=== PATIENT | female | born 1955 | race African-American/Black ===

== ENCOUNTER 2021-07-30 16:46 | Inpatient (IN) | payer BC ==
[~2021-07-30] VITALS: Ht 160 cm; Wt 75.5 kg
[2021-07-30 18:03] LABS: BASOPHILS % 0.7 % (0.0-2.0); EOSINOPHILS % 1.5 % (0.0-5.0); HEMATOCRIT. 37.9 % (36.0-48.0); HEMOGLOBIN. 12.5 g/dL (12.0-16.0); LYMPHOCYTES % 16.1 % (20.0-50.0); MEAN CORPUSCULAR HEMOGLOBIN 29.8 pg (28.0-32.0); MEAN CORPUSCULAR VOLUME 90.3 fL (81.0-99.0); MONOCYTES % 10.7 % (2.0-8.0); PLATELET 220 x1000/uL (130-400); RED CELL DISTRIBUTION WIDTH 17.8 % (11.6-14.6)
[2021-07-30 18:08] LABS: CHLORIDE 104 mEq/L (98-107)
[2021-07-30 18:14] LABS: ETHANOL BLOOD < 10 mg/dL
[2021-07-30] MEDS ORDERED: FUROSEMIDE 40MG/4ML VIAL IVP NR (19:15)
[2021-07-30] MEDS ORDERED: DOCUSATE SODIUM 100MG CAPSULE PO PRN (22:30)
[2021-07-30] MEDS ORDERED: CLONIDINE 0.1MG TABLET PO PRN (22:30)
[2021-07-30] MEDS ORDERED: NALOXONE HCL 0.4MG/ML VIAL IV PRN (22:45)
[2021-07-31] VITALS (7 sets, daily range): BP systolic 97–161; BP diastolic 67–113
[2021-07-31 00:38] LABS: CLARITY URINE CLEAR (CLEAR); COLOR URINE YELLOW (YELLOW); KETONES URINE NEGATIVE (NEGATIVE); LEUKOCYTE ESTERASE URINE NEGATIVE (NEGATIVE); NITRITE URINE NEGATIVE (NEGATIVE); OCCULT BLOOD URINE NEGATIVE (NEGATIVE); PROTEIN URINE 3+ (NEGATIVE); SPECIFIC GRAVITY URINE 1.016 (1.005-1.030); UROBILINOGEN URINE 0.2 E.U./dL (0.2-1.0)
[2021-07-31 00:55] LABS: *AMPHETAMINES SCREEN URINE NEGATIVE (NEGATIVE); *BARBITURATES SCREEN URINE NEGATIVE (NEGATIVE); *BENZODIAZEPINES SCREEN URINE NEGATIVE (NEGATIVE); *COCAINE SCREEN URINE NEGATIVE (NEGATIVE); METHADONE URINE SCREEN NEGATIVE (NEGATIVE); OPIATES URINE SCREEN NEGATIVE (NEGATIVE); PHENCYCLIDINE URINE SCREEN NEGATIVE (NEGATIVE)
[2021-07-31 00:56] LABS: CANNABINOID URINE SCREEN NEGATIVE (NEGATIVE)
[2021-07-31] MEDS: ACETAMINOPHEN 325MG TABLET PO PRN ×2 (01:21→12:49)
[2021-07-31] MEDS ORDERED: DEXTROSE 50% WATER 50ML SYRINGE IV PRN (01:45)
[2021-07-31] MEDS ORDERED: KEPP500 PO (01:57)
[2021-07-31] MEDS ORDERED: AMLO5TAB88 PO (01:57)
[2021-07-31] MEDS ORDERED: ALLO100T57 PO (01:57)
[2021-07-31] MEDS ORDERED: FURO-151 PO (01:57)
[2021-07-31] MEDS ORDERED: POTA10CA42 PO (01:57)
[2021-07-31] MEDS ORDERED: LABE100T5 PO (01:57)
[2021-07-31] MEDS ORDERED: ATOR-2 PO (01:57)
[2021-07-31] MEDS: BLOOD SUGAR DIAGNOSTIC STRIP TEST SCH ×4 (06:35→21:05)
[2021-07-31] MEDS: INSULIN LISPRO 100 UNITS/ML SUBCUT SCH ×4 (06:36→21:00)
[2021-07-31 06:37] LABS: HEMATOCRIT. 34.4 % (36.0-48.0); HEMOGLOBIN. 11.5 g/dL (12.0-16.0); MEAN CORPUSCULAR HEMOGLOBIN 29.7 pg (28.0-32.0); MEAN CORPUSCULAR VOLUME 89.1 fL (81.0-99.0); MEAN PLATELET VOLUME 8.1 fl (7.4-10.4); PLATELET 205 x1000/uL (130-400); RED BLOOD CELL COUNT 3.86 mill/uL (4.2-5.4); RED CELL DISTRIBUTION WIDTH 17.6 % (11.6-14.6)
[2021-07-31 07:08] LABS: CREATINE KINASE MB FRACTION 3.7 ng/mL (0.5-3.6)
[2021-07-31] MEDS: FUROSEMIDE 40MG/4ML VIAL IV SCH ×2 (09:10→17:23)
[2021-07-31] MEDS ORDERED: POTASSIUM CHLORIDE 20MEQ TABLET SR PO NR (11:30)
[2021-07-31] MEDS: DILTIAZEM HCL 30MG TABLET PO SCH ×2 (12:48→21:04)
[2021-07-31 14:42] LABS: PLATELET ESTIMATE NORMAL
[2021-07-31] MEDS ORDERED: BUME2TAB7 PO (20:57)
[2021-07-31] MEDS: ENOXAPARIN 30MG/0.3ML SYR SUBCUT SCH (21:08)
[2021-07-31] MEDS: HYDROCODONE/ACETAMINOPHEN 5/325MG TABLET PO PRN (21:09)
[2021-07-31 23:03] LABS: CREATINE KINASE 117 IU/L (26-192)
[2021-07-31 23:04] LABS: CREATINE KINASE MB FRACTION 2.7 ng/mL (0.5-3.6)
[2021-08-01] VITALS: BP 139/85
[2021-08-01 04:00] VITALS: BP 141/89
[2021-08-01] MEDS: IPRATROPIUM/ALBUTEROL 0.5-3(2.5)MG/3ML NEB HHN PRN ×2 (04:59→22:34)
[2021-08-01] MEDS: DILTIAZEM HCL 30MG TABLET PO SCH ×3 (06:29→21:11)
[2021-08-01] MEDS: BLOOD SUGAR DIAGNOSTIC STRIP TEST SCH ×4 (06:29→21:00)
[2021-08-01] MEDS: FUROSEMIDE 40MG/4ML VIAL IV SCH ×2 (06:29→16:48)
[2021-08-01] MEDS: INSULIN LISPRO 100 UNITS/ML SUBCUT SCH ×4 (06:29→21:00)
[2021-08-01 06:44] LABS: HEMATOCRIT. 36.2 % (36.0-48.0); HEMOGLOBIN. 11.8 g/dL (12.0-16.0); MEAN CORPUSCULAR HEMOGLOBIN 29.2 pg (28.0-32.0); MEAN CORPUSCULAR VOLUME 89.8 fL (81.0-99.0); PLATELET 215 x1000/uL (130-400); RED BLOOD CELL COUNT 4.03 mill/uL (4.2-5.4); RED CELL DISTRIBUTION WIDTH 18.2 % (11.6-14.6)
[2021-08-01 08:00] VITALS: BP 134/84
[2021-08-01] MEDS: METOLAZONE 5MG TABLET PO SCH (09:00)
[2021-08-01 12:00] VITALS: BP 122/90
[2021-08-01] MEDS: ACETAMINOPHEN 325MG TABLET PO PRN (15:15)
[2021-08-01 16:00] VITALS: BP 139/94
[2021-08-01 20:00] VITALS: BP 134/84
[2021-08-01] MEDS: ENOXAPARIN 30MG/0.3ML SYR SUBCUT SCH ×2 (21:00→21:10)
[2021-08-01] MEDS: LEVETIRACETAM 500MG TABLET PO SCH (21:11)
[2021-08-02] VITALS: BP 146/88
[2021-08-02 04:00] VITALS: BP 159/94
[2021-08-02] MEDS: HYDROCODONE/ACETAMINOPHEN 5/325MG TABLET PO PRN (04:47)
[2021-08-02] MEDS: DILTIAZEM HCL 30MG TABLET PO SCH ×3 (06:00→21:40)
[2021-08-02] MEDS: INSULIN LISPRO 100 UNITS/ML SUBCUT SCH ×4 (06:35→21:00)
[2021-08-02] MEDS: BLOOD SUGAR DIAGNOSTIC STRIP TEST SCH ×4 (06:35→20:45)
[2021-08-02] MEDS: FUROSEMIDE 40MG/4ML VIAL IV SCH ×2 (06:37→17:07)
[2021-08-02 07:38] LABS: PLATELET ESTIMATE NORMAL
[2021-08-02 08:00] VITALS: BP 137/78
[2021-08-02] MEDS: LEVETIRACETAM 500MG TABLET PO SCH ×2 (08:49→21:39)
[2021-08-02] MEDS: METOLAZONE 5MG TABLET PO SCH (08:49)
[2021-08-02] MEDS: ACETAMINOPHEN 325MG TABLET PO PRN (08:49)
[2021-08-02] MEDS ORDERED: LORAZEPAM 2MG/ML CPJ IV ONE (09:00)
[2021-08-02] MEDS ORDERED: LORAZEPAM 2MG/ML CPJ IV NR (09:30)
[2021-08-02 12:00] VITALS: BP 153/97
[2021-08-02] MEDS: ONDANSETRON HCL 4MG/2ML INJ IV PRN (14:13)
[2021-08-02 16:00] VITALS: BP 143/101
[2021-08-02 20:00] VITALS: BP 155/92
[2021-08-03] VITALS: BP 134/93
[2021-08-03 04:00] VITALS: BP 150/96
[2021-08-03 05:42] LABS: HEMATOCRIT. 36.8 % (36.0-48.0); HEMOGLOBIN. 12.2 g/dL (12.0-16.0); MEAN CORPUSCULAR HEMOGLOBIN 29.6 pg (28.0-32.0); MEAN PLATELET VOLUME 8.1 fl (7.4-10.4); PLATELET 223 x1000/uL (130-400); RED BLOOD CELL COUNT 4.14 mill/uL (4.2-5.4); RED CELL DISTRIBUTION WIDTH 17.5 % (11.6-14.6)
[2021-08-03] MEDS: INSULIN LISPRO 100 UNITS/ML SUBCUT SCH ×4 (05:52→21:31)
[2021-08-03] MEDS: BLOOD SUGAR DIAGNOSTIC STRIP TEST SCH ×4 (05:52→21:29)
[2021-08-03] MEDS: FUROSEMIDE 40MG/4ML VIAL IV SCH ×2 (06:20→17:03)
[2021-08-03] MEDS: DILTIAZEM HCL 30MG TABLET PO SCH ×3 (06:20→21:30)
[2021-08-03 08:00] VITALS: BP 118/74
[2021-08-03] MEDS: LEVETIRACETAM 500MG TABLET PO SCH ×2 (08:46→21:31)
[2021-08-03] MEDS: METOLAZONE 5MG TABLET PO SCH (08:46)
[2021-08-03 11:33] LABS: PLATELET ESTIMATE NORMAL
[2021-08-03 12:00] VITALS: BP 145/92
[2021-08-03] MEDS: IPRATROPIUM/ALBUTEROL 0.5-3(2.5)MG/3ML NEB HHN PRN (13:21)
[2021-08-03 16:00] VITALS: BP 152/95
[2021-08-03 20:00] VITALS: BP 131/83
[2021-08-03 23:15] LABS: CREATININE URINE (RAW) 28.3 mg/dl
[2021-08-04] VITALS: BP 135/84
[2021-08-04] MEDS: ACETAMINOPHEN 325MG TABLET PO PRN ×2 (00:37→20:04)
[2021-08-04] MEDS: HYDROCODONE/ACETAMINOPHEN 5/325MG TABLET PO PRN (03:29)
[2021-08-04 04:00] VITALS: BP 144/82
[2021-08-04] MEDS: DILTIAZEM HCL 30MG TABLET PO SCH ×3 (06:01→21:34)
[2021-08-04] MEDS: INSULIN LISPRO 100 UNITS/ML SUBCUT SCH ×4 (06:02→21:00)
[2021-08-04] MEDS: BLOOD SUGAR DIAGNOSTIC STRIP TEST SCH ×4 (06:02→21:46)
[2021-08-04] MEDS: FUROSEMIDE 40MG/4ML VIAL IV SCH ×2 (06:02→16:59)
[2021-08-04 08:00] VITALS: BP 147/88
[2021-08-04] MEDS ORDERED: LORAZEPAM 2MG/ML CPJ IV SCH ×2 (08:30→16:00)
[2021-08-04] MEDS: METOLAZONE 5MG TABLET PO SCH (09:29)
[2021-08-04] MEDS: LEVETIRACETAM 500MG TABLET PO SCH ×2 (09:29→21:35)
[2021-08-04 12:00] VITALS: BP 153/97
[2021-08-04 16:00] VITALS: BP 160/83
[2021-08-04 20:00] VITALS: BP 157/96
[2021-08-04] MEDS ORDERED: ZOLPIDEM TARTRATE 5MG TABLET PO PRN (21:00)
[2021-08-04] MEDS: MELATONIN 3MG TABLET PO SCH (22:48)
[2021-08-05] VITALS: BP 159/90
[2021-08-05 04:00] VITALS: BP 134/83
[2021-08-05] MEDS: FUROSEMIDE 40MG/4ML VIAL IV SCH ×2 (05:45→18:21)
[2021-08-05] MEDS: BLOOD SUGAR DIAGNOSTIC STRIP TEST SCH ×4 (05:46→20:30)
[2021-08-05] MEDS: INSULIN LISPRO 100 UNITS/ML SUBCUT SCH ×4 (05:46→20:31)
[2021-08-05] MEDS: DILTIAZEM HCL 30MG TABLET PO SCH ×3 (05:46→20:30)
[2021-08-05 08:00] VITALS: BP 158/92
[2021-08-05] MEDS: METOLAZONE 5MG TABLET PO SCH (09:03)
[2021-08-05] MEDS: ONDANSETRON HCL 4MG/2ML INJ IV PRN ×2 (09:04→21:10)
[2021-08-05] MEDS: LEVETIRACETAM 500MG TABLET PO SCH ×2 (09:04→20:30)
[2021-08-05 12:00] VITALS: BP 122/78
[2021-08-05 16:00] VITALS: BP 155/94
[2021-08-05] MEDS ORDERED: LORAZEPAM 2MG/ML CPJ IV NR (18:15)
[2021-08-05 20:00] VITALS: BP 148/88
[2021-08-05] MEDS: ACETAMINOPHEN 325MG TABLET PO PRN (20:30)
[2021-08-05] MEDS: MELATONIN 3MG TABLET PO SCH (23:19)
[2021-08-06] VITALS: BP 132/68
[2021-08-06 04:00] VITALS: BP 133/80
[2021-08-06] MEDS: DILTIAZEM HCL 30MG TABLET PO SCH ×3 (05:39→20:50)
[2021-08-06] MEDS: FUROSEMIDE 40MG/4ML VIAL IV SCH ×2 (05:39→17:50)
[2021-08-06] MEDS: INSULIN LISPRO 100 UNITS/ML SUBCUT SCH ×4 (05:44→20:51)
[2021-08-06] MEDS: BLOOD SUGAR DIAGNOSTIC STRIP TEST SCH ×4 (05:44→20:51)
[2021-08-06 08:00] VITALS: BP 135/78
[2021-08-06] MEDS: METOLAZONE 5MG TABLET PO SCH (08:50)
[2021-08-06] MEDS: LEVETIRACETAM 500MG TABLET PO SCH ×2 (08:50→20:50)
[2021-08-06] MEDS ORDERED: LORAZEPAM 2MG/ML CPJ IV NR (09:30)
[2021-08-06 12:00] VITALS: BP 153/93
[2021-08-06 16:00] VITALS: BP 164/100
[2021-08-06 20:00] VITALS: BP 125/82
[2021-08-06] MEDS: MELATONIN 3MG TABLET PO SCH (20:51)
[2021-08-07] VITALS: BP 154/92
[2021-08-07] MEDS: ACETAMINOPHEN 325MG TABLET PO PRN ×2 (03:35→12:39)
[2021-08-07 04:00] VITALS: BP 139/91
[2021-08-07] MEDS: BLOOD SUGAR DIAGNOSTIC STRIP TEST SCH ×3 (05:36→17:20)
[2021-08-07] MEDS: DILTIAZEM HCL 30MG TABLET PO SCH ×2 (05:36→13:00)
[2021-08-07] MEDS: FUROSEMIDE 40MG/4ML VIAL IV SCH ×2 (05:37→17:20)
[2021-08-07] MEDS: INSULIN LISPRO 100 UNITS/ML SUBCUT SCH ×3 (05:37→17:15)
[2021-08-07 08:00] VITALS: BP 121/74
[2021-08-07] MEDS: LEVETIRACETAM 500MG TABLET PO SCH (09:30)
[2021-08-07] MEDS: METOLAZONE 5MG TABLET PO SCH (09:30)
[2021-08-07 12:00] VITALS: BP 177/96
[2021-08-07 16:00] VITALS: BP 139/90
[2021-08-07 18:32] VITALS: BP 139/90
== END 2021-08-07 19:00 | DRG 189 ==
LOC: ER 16:46 → 5WST 21:24 → ENRESERV 22:50
PROVIDERS: ADMIT Internal Medicine; ATTEND Internal Medicine
PROC: 4A10X4Z Monitoring of Central Nervous Electrical Activity, External Approach (ICD-10-PCS; principal; 2021-08-06)
DX: J96.20 Acute and chronic respiratory failure, unspecified whether with hypoxia or hypercapnia (principal); N17.0 Acute kidney failure with tubular necrosis; G45.9 Transient cerebral ischemic attack, unspecified; I13.0 Hypertensive heart and chronic kidney disease with heart failure and stage 1 through stage 4 chronic kidney disease, or unspecified chronic kidney disease; N18.4 Chronic kidney disease, stage 4 (severe); I69.354 Hemiplegia and hemiparesis following cerebral infarction affecting left non-dominant side; U09.9 Post COVID-19 condition, unspecified; D72.819 Decreased white blood cell count, unspecified; E11.22 Type 2 diabetes mellitus with diabetic chronic kidney disease; E87.6 Hypokalemia; F17.210 Nicotine dependence, cigarettes, uncomplicated; I45.10 Unspecified right bundle-branch block; I50.9 Heart failure, unspecified; J44.9 Chronic obstructive pulmonary disease, unspecified; N28.1 Cyst of kidney, acquired; E78.00 Pure hypercholesterolemia, unspecified; Z20.822 Contact with and (suspected) exposure to COVID-19; R26.89 Other abnormalities of gait and mobility; I27.81 Cor pulmonale (chronic); I36.1 Nonrheumatic tricuspid (valve) insufficiency; I27.21 Secondary pulmonary arterial hypertension; Z87.01 Personal history of pneumonia (recurrent); Z82.49 Family history of ischemic heart disease and other diseases of the circulatory system; Z86.79 Personal history of other diseases of the circulatory system; R53.81 Other malaise; Z71.6 Tobacco abuse counseling; G40.909 Epilepsy, unspecified, not intractable, without status epilepticus
CPT/HCPCS: 36415; 70551; 71045; 72141; 72146; 72148; 76770; 80048; 80053; 80061; 80305; 80320; 81003; 82550; 82553; 82570; 82575; 82962; 83036; 83735; 83880; 84156; 84300; 84443; 84484; 85025; 87426; 93005; 93306; 93970; 94640; 97110; 97162; 97166; 97530; 97535; 99285; J1650; J1815; J1940; J2060; J2405; A4315; G0480

== ENCOUNTER 2022-01-10 22:58 | Inpatient (IN) | payer BC ==
[~2022-01-10] VITALS: Ht 157.5 cm; Wt 68.0 kg
[~2022-01-10 22:58] MED LIST: ALLO100T57 PO; AMLO5TAB88 PO; ATOR-2 PO; BUME2TAB7 PO; FURO-151 PO; KEPP500 PO; LABE100T5 PO; POTA10CA42 PO
[2022-01-11] MEDS ORDERED: SODIUM CHLORIDE 0.9% 500 ML IV ONE
[2022-01-11 00:49] LABS: HEMATOCRIT. 45.5 % (36.0-48.0); HEMOGLOBIN. 14.6 g/dL (12.0-16.0); MEAN CORPUSCULAR HEMOGLOBIN 31.5 pg (28.0-32.0); MEAN PLATELET VOLUME 8.5 fl (7.4-10.4); PLATELET 144 x1000/uL (130-400); RED BLOOD CELL COUNT 4.64 mill/uL (4.2-5.4); RED CELL DISTRIBUTION WIDTH 17.2 % (11.6-14.6)
[2022-01-11 00:55] LABS: CHLORIDE 101 mEq/L (98-107)
[2022-01-11 03:59] LABS: PLATELET ESTIMATE NORMAL
[2022-01-11] MEDS ORDERED: DOCUSATE SODIUM 100MG CAPSULE PO PRN (10:15)
[2022-01-11] MEDS ORDERED: IPRATROPIUM/ALBUTEROL 0.5-3(2.5)MG/3ML NEB HHN PRN (10:15)
[2022-01-11] MEDS ORDERED: MAGNESIUM/ALUMINUM HYDROXIDE/SIMETHICONE 30ML UDC PO PRN (10:15)
[2022-01-11] MEDS ORDERED: HYDRALAZINE 20MG/ML VIAL IV PRN (10:15)
[2022-01-11] MEDS ORDERED: GUAIFENESIN 200MG/10ML SUGAR FREE UDC PO PRN (10:15)
[2022-01-11] MEDS ORDERED: CLONIDINE 0.1MG TABLET PO PRN (10:15)
[2022-01-11] MEDS ORDERED: MORPHINE SULFATE 2 MG/ML CPJ (NOT FOR IM USE) IV PRN (10:15)
[2022-01-11] MEDS ORDERED: HYDROCODONE/ACETAMINOPHEN 5/325MG TABLET PO PRN (10:15)
[2022-01-11] MEDS ORDERED: NALOXONE HCL 0.4MG/ML VIAL IV PRN (10:30)
[2022-01-11 14:46] VITALS: BP 94/67
[2022-01-11 15:37] VITALS: BP 94/67
[2022-01-11] MEDS: PANTOPRAZOLE SODIUM 40 MG/VIAL IV SCH (17:04)
[2022-01-11] MEDS ORDERED: METO5TAB7 PO (17:30)
[2022-01-11] MEDS ORDERED: ZOLP5TAB8 PO (17:30)
[2022-01-11] MEDS ORDERED: PANT40TA51 PO (17:30)
[2022-01-11] MEDS ORDERED: CINA30 PO (17:30)
[2022-01-11 20:00] VITALS: BP 99/62
[2022-01-11] MEDS: SODIUM CHLORIDE 0.9% INJ 3ML FLUSH IVF SCH (20:48)
[2022-01-11] MEDS: DIPHENHYDRAMINE 50MG/ML VIAL IV PRN (21:17)
[2022-01-12] VITALS: BP 93/68
[2022-01-12 04:00] VITALS: BP 106/62
[2022-01-12] MEDS: SODIUM CHLORIDE 0.9% INJ 3ML FLUSH IVF SCH ×3 (06:05→21:23)
[2022-01-12 06:28] LABS: HEMATOCRIT. 45.2 % (36.0-48.0); HEMOGLOBIN. 14.5 g/dL (12.0-16.0); MEAN CORPUSCULAR HEMOGLOBIN 31.7 pg (28.0-32.0); MEAN CORPUSCULAR VOLUME 98.6 fL (81.0-99.0); MEAN PLATELET VOLUME 8.9 fl (7.4-10.4); PLATELET 150 x1000/uL (130-400); RED BLOOD CELL COUNT 4.59 mill/uL (4.2-5.4); RED CELL DISTRIBUTION WIDTH 17.2 % (11.6-14.6)
[2022-01-12 07:29] LABS: CHLORIDE 101 mEq/L (98-107)
[2022-01-12 08:00] VITALS: BP 91/60
[2022-01-12] MEDS: ENOXAPARIN 30MG/0.3ML SYR SUBCUT SCH (08:00)
[2022-01-12] MEDS: PANTOPRAZOLE SODIUM 40 MG/VIAL IV SCH (08:01)
[2022-01-12] MEDS: DIPHENHYDRAMINE 50MG/ML VIAL IV PRN (10:57)
[2022-01-12 12:00] VITALS: BP 103/59
[2022-01-12 12:21] LABS: HEPATITIS B SURFACE ANTIGEN NEGATIVE
[2022-01-12 16:00] VITALS: BP 109/66
[2022-01-12] MEDS: PIPERACILLIN/TAZOBACTAM 3.375 G in DEXTROSE 5% WATER 50 ML IV SCH ×2 (16:49→23:25)
[2022-01-12 17:05] LABS: NUCLEATED RED BLOOD CELLS 4 /100 WBC; PLATELET ESTIMATE NORMAL
[2022-01-12] MEDS ORDERED: ALBUMIN HUMAN 25GM/100ML (25%) IV NR (18:00)
[2022-01-12] MEDS: ONDANSETRON HCL 4MG/2ML INJ IV PRN (19:51)
[2022-01-12] MEDS: ACETAMINOPHEN 325MG TABLET PO PRN (19:59)
[2022-01-12 20:00] VITALS: BP 92/66
[2022-01-13] VITALS (8 sets, daily range): BP systolic 89–125; BP diastolic 57–70
[2022-01-13] MEDS: ONDANSETRON HCL 4MG/2ML INJ IV PRN (03:52)
[2022-01-13] MEDS: SODIUM CHLORIDE 0.9% INJ 3ML FLUSH IVF SCH ×3 (05:55→21:13)
[2022-01-13 06:48] LABS: HEMATOCRIT. 45.6 % (36.0-48.0); HEMOGLOBIN. 14.5 g/dL (12.0-16.0); MEAN CORPUSCULAR HEMOGLOBIN 31.8 pg (28.0-32.0); MEAN CORPUSCULAR VOLUME 99.8 fL (81.0-99.0); MEAN PLATELET VOLUME 8.8 fl (7.4-10.4); PLATELET 136 x1000/uL (130-400); RED BLOOD CELL COUNT 4.57 mill/uL (4.2-5.4); RED CELL DISTRIBUTION WIDTH 17.5 % (11.6-14.6)
[2022-01-13] MEDS: ENOXAPARIN 30MG/0.3ML SYR SUBCUT SCH (09:00)
[2022-01-13] MEDS ORDERED: MIDODRINE HCL 2.5MG TABLET PO SCH (09:00)
[2022-01-13] MEDS: PIPERACILLIN/TAZOBACTAM 3.375 G in DEXTROSE 5% WATER 50 ML IV SCH ×2 (09:17→21:12)
[2022-01-13] MEDS: DIPHENHYDRAMINE 50MG/ML VIAL IV PRN (09:17)
[2022-01-13] MEDS: PANTOPRAZOLE SODIUM 40 MG/VIAL IV SCH (09:18)
[2022-01-13] MEDS: MIDODRINE HCL 5MG TABLET PO SCH ×3 (10:45→19:09)
[2022-01-13] MEDS: DEXTROSE 50% WATER 50ML SYRINGE IV NR ×2 (17:27→18:50)
[2022-01-13] MEDS ORDERED: DEXTROSE 50% WATER 50ML SYRINGE IV PRN (18:45)
[2022-01-13] MEDS: DEXTROSE 5% WATER 1,000 ML IV SCH (18:52)
[2022-01-13 22:01] LABS: NUCLEATED RED BLOOD CELLS 5 /100 WBC; PLATELET ESTIMATE NORMAL
[2022-01-14 00:07] VITALS: BP 93/61
[2022-01-14 03:53] VITALS: BP 119/98
[2022-01-14] MEDS: DIPHENHYDRAMINE 50MG/ML VIAL IV PRN (03:57)
[2022-01-14] MEDS: SODIUM CHLORIDE 0.9% INJ 3ML FLUSH IVF SCH ×3 (06:43→20:49)
[2022-01-14 08:00] VITALS: BP 129/71
[2022-01-14] MEDS: MIDODRINE HCL 5MG TABLET PO SCH ×3 (09:29→18:40)
[2022-01-14] MEDS: ENOXAPARIN 30MG/0.3ML SYR SUBCUT SCH (09:36)
[2022-01-14] MEDS: PANTOPRAZOLE SODIUM 40 MG/VIAL IV SCH (12:05)
[2022-01-14] MEDS: PIPERACILLIN/TAZOBACTAM 3.375 G in DEXTROSE 5% WATER 50 ML IV SCH ×2 (12:06→20:49)
[2022-01-14] MEDS: FLUDROCORTISONE ACETATE 0.1MG TABLET PO SCH (12:09)
[2022-01-14 12:20] VITALS: BP 97/67
[2022-01-14] MEDS: DEXTROSE 50% WATER 50ML SYRINGE IV PRN ×2 (14:31→18:38)
[2022-01-14] MEDS: ONDANSETRON HCL 4MG/2ML INJ IV PRN (14:32)
[2022-01-14 16:00] VITALS: BP 110/83
[2022-01-14 18:09] LABS: BASOPHILS % 0.2 % (0.0-2.0); EOSINOPHILS % 0.3 % (0.0-5.0); HEMATOCRIT. 47.7 % (36.0-48.0); HEMOGLOBIN. 15.4 g/dL (12.0-16.0); LYMPHOCYTES % 12.1 % (20.0-50.0); MEAN CORPUSCULAR HEMOGLOBIN 32.2 pg (28.0-32.0); MEAN CORPUSCULAR VOLUME 99.9 fL (81.0-99.0); MEAN PLATELET VOLUME 8.3 fl (7.4-10.4); MONOCYTES % 11.3 % (2.0-8.0); NEUTROPHILS % 76.1 % (40.0-76.0); PLATELET 96 x1000/uL (130-400); RED BLOOD CELL COUNT 4.78 mill/uL (4.2-5.4); RED CELL DISTRIBUTION WIDTH 18.1 % (11.6-14.6)
[2022-01-14] MEDS: BLOOD SUGAR DIAGNOSTIC STRIP TEST SCH ×2 (18:40→20:49)
[2022-01-14] MEDS: DEXTROSE 5% WATER 1,000 ML IV SCH (19:05)
[2022-01-14 20:00] VITALS: BP 125/62
[2022-01-15] VITALS: BP 128/70
[2022-01-15] MEDS: DEXTROSE 50% WATER 50ML SYRINGE IV PRN (00:23)
[2022-01-15] MEDS: SODIUM CHLORIDE 0.9% INJ 3ML FLUSH IVF SCH ×3 (06:00→22:01)
[2022-01-15] MEDS: BLOOD SUGAR DIAGNOSTIC STRIP TEST SCH ×4 (07:10→21:59)
[2022-01-15 08:00] VITALS: BP 101/65
[2022-01-15] MEDS: MIDODRINE HCL 5MG TABLET PO SCH ×3 (09:00→18:00)
[2022-01-15] MEDS: PIPERACILLIN/TAZOBACTAM 3.375 G in DEXTROSE 5% WATER 50 ML IV SCH ×2 (09:00→22:01)
[2022-01-15] MEDS: ENOXAPARIN 30MG/0.3ML SYR SUBCUT SCH (09:00)
[2022-01-15] MEDS: FLUDROCORTISONE ACETATE 0.1MG TABLET PO SCH (09:00)
[2022-01-15] MEDS: PANTOPRAZOLE SODIUM 40 MG/VIAL IV SCH (09:00)
[2022-01-15 11:50] LABS: HEMATOCRIT. 48.7 % (36.0-48.0); HEMOGLOBIN. 15.8 g/dL (12.0-16.0); MEAN CORPUSCULAR HEMOGLOBIN 32.5 pg (28.0-32.0); MEAN CORPUSCULAR VOLUME 100.1 fL (81.0-99.0); MEAN PLATELET VOLUME 8.3 fl (7.4-10.4); PLATELET 97 x1000/uL (130-400); RED BLOOD CELL COUNT 4.86 mill/uL (4.2-5.4)
[2022-01-15 12:00] VITALS: BP 100/67
[2022-01-15] MEDS: ONDANSETRON HCL 4MG/2ML INJ IV PRN (12:14)
[2022-01-15 13:20] LABS: FOLIC ACID (FOLATE) SERUM 7.1 ng/mL (>5.38)
[2022-01-15 15:11] LABS: CORTISOL 35.6 ucg/dL
[2022-01-15 16:00] VITALS: BP 98/59
[2022-01-15 16:36] LABS: T4 FREE 0.71 ng/dL (0.76-1.46)
[2022-01-15 17:39] LABS: NUCLEATED RED BLOOD CELLS 19 /100 WBC; PLATELET ESTIMATE DECREASED
[2022-01-15] MEDS: DEXTROSE 5% WATER 1,000 ML IV SCH (18:02)
[2022-01-15 20:00] VITALS: BP 130/60
[2022-01-16] VITALS: BP 101/68
[2022-01-16 04:30] VITALS: BP 93/65
[2022-01-16] MEDS: BLOOD SUGAR DIAGNOSTIC STRIP TEST SCH ×4 (07:10→21:17)
[2022-01-16 08:00] VITALS: BP 104/73
[2022-01-16] MEDS: ENOXAPARIN 30MG/0.3ML SYR SUBCUT SCH (09:00)
[2022-01-16 12:00] VITALS: BP 100/70
[2022-01-16] MEDS: SODIUM CHLORIDE 0.9% INJ 3ML FLUSH IVF SCH ×2 (12:43→21:18)
[2022-01-16] MEDS: PANTOPRAZOLE SODIUM 40 MG/VIAL IV SCH (12:43)
[2022-01-16] MEDS: MIDODRINE HCL 5MG TABLET PO SCH ×3 (12:44→19:06)
[2022-01-16] MEDS: FLUDROCORTISONE ACETATE 0.1MG TABLET PO SCH (12:44)
[2022-01-16] MEDS: PIPERACILLIN/TAZOBACTAM 3.375 G in DEXTROSE 5% WATER 50 ML IV SCH ×2 (12:45→21:18)
[2022-01-16 16:00] VITALS: BP 106/67
[2022-01-16] MEDS: DEXTROSE 50% WATER 50ML SYRINGE IV PRN (18:54)
[2022-01-16] MEDS: ONDANSETRON HCL 4MG/2ML INJ IV PRN (18:54)
[2022-01-16 20:00] VITALS: BP 107/62
[2022-01-17] VITALS: BP 101/66
[2022-01-17 04:00] VITALS: BP 101/69
[2022-01-17] MEDS: SODIUM CHLORIDE 0.9% INJ 3ML FLUSH IVF SCH ×3 (05:24→22:00)
[2022-01-17] MEDS: BLOOD SUGAR DIAGNOSTIC STRIP TEST SCH ×4 (05:24→21:00)
[2022-01-17] MEDS: ENOXAPARIN 30MG/0.3ML SYR SUBCUT SCH (08:37)
[2022-01-17] MEDS: FLUDROCORTISONE ACETATE 0.1MG TABLET PO SCH (08:37)
[2022-01-17] MEDS: PANTOPRAZOLE SODIUM 40 MG/VIAL IV SCH (08:37)
[2022-01-17] MEDS: MIDODRINE HCL 5MG TABLET PO SCH ×3 (08:38→16:45)
[2022-01-17 09:00] VITALS: BP 138/75
[2022-01-17 09:11] LABS: FOLICLE STIMULATING HORMONE 0.6 mIU/mL (.); PROLACTIN 47.2 ng/mL (4.8-23.3)
[2022-01-17 12:00] VITALS: BP 107/71
[2022-01-17 16:00] VITALS: BP 122/71
[2022-01-17 16:15] LABS: BASOPHILS % 0.3 % (0.0-2.0); EOSINOPHILS % 0.9 % (0.0-5.0); HEMATOCRIT. 49.1 % (36.0-48.0); HEMOGLOBIN. 15.2 g/dL (12.0-16.0); LYMPHOCYTES % 13.7 % (20.0-50.0); MEAN CORPUSCULAR HEMOGLOBIN 31.9 pg (28.0-32.0); MEAN CORPUSCULAR VOLUME 102.6 fL (81.0-99.0); MEAN PLATELET VOLUME 8.8 fl (7.4-10.4); MONOCYTES % 14.9 % (2.0-8.0); NEUTROPHILS % 70.2 % (40.0-76.0); PLATELET 67 x1000/uL (130-400); RED BLOOD CELL COUNT 4.78 mill/uL (4.2-5.4); RED CELL DISTRIBUTION WIDTH 18.9 % (11.6-14.6)
[2022-01-17] MEDS: ONDANSETRON HCL 4MG/2ML INJ IV PRN (19:18)
[2022-01-17 20:00] VITALS: BP 108/77
[2022-01-18] VITALS: BP 120/57
[2022-01-18 04:00] VITALS: BP 113/64
[2022-01-18] MEDS: BLOOD SUGAR DIAGNOSTIC STRIP TEST SCH ×4 (06:55→21:17)
[2022-01-18] MEDS: SODIUM CHLORIDE 0.9% INJ 3ML FLUSH IVF SCH ×3 (06:55→21:17)
[2022-01-18] MEDS ORDERED: DEXTROSE 50% WATER 50ML SYRINGE IV NR (07:30)
[2022-01-18] MEDS ORDERED: SODIUM BICARBONATE 8.4% 1 MEQ/ML 50ML SYR IV NR (07:30)
[2022-01-18] MEDS ORDERED: INSULIN REGULAR (HUMULIN R) 300UNITS/3ML VIAL IV NR (07:30)
[2022-01-18 08:00] VITALS: BP 121/88
[2022-01-18] MEDS ORDERED: CALCIUM CHLORIDE 1,000 MG in DEXT 5% WATER 90 ML IV NR (08:30)
[2022-01-18] MEDS: ENOXAPARIN 30MG/0.3ML SYR SUBCUT SCH (09:00)
[2022-01-18 09:09] LABS: INSULIN 14.7 uIU/mL (2.6-24.9)
[2022-01-18 09:09] LABS: C-PEPTIDE 3.4 ng/mL (1.1-4.4); INSULIN 8.1 uIU/mL (2.6-24.9)
[2022-01-18] MEDS: PANTOPRAZOLE SODIUM 40 MG/VIAL IV SCH (09:19)
[2022-01-18] MEDS: FLUDROCORTISONE ACETATE 0.1MG TABLET PO SCH (09:19)
[2022-01-18] MEDS: MIDODRINE HCL 5MG TABLET PO SCH ×3 (09:19→17:00)
[2022-01-18] MEDS ORDERED: SODIUM POLYSTYRENE SULFONATE 15 G/60 ML BOT PO SCH (10:00)
[2022-01-18 12:00] VITALS: BP 116/85
[2022-01-18 16:00] VITALS: BP 142/86
[2022-01-18 20:00] VITALS: BP 125/74
[2022-01-19] VITALS: BP 130/68
[2022-01-19 04:00] VITALS: BP 150/83
[2022-01-19] MEDS: SODIUM CHLORIDE 0.9% INJ 3ML FLUSH IVF SCH ×3 (06:00→21:03)
[2022-01-19] MEDS: BLOOD SUGAR DIAGNOSTIC STRIP TEST SCH ×4 (07:02→21:03)
[2022-01-19 08:00] VITALS: BP 162/98
[2022-01-19] MEDS: PANTOPRAZOLE SODIUM 40 MG/VIAL IV SCH (09:00)
[2022-01-19] MEDS: MIDODRINE HCL 5MG TABLET PO SCH ×3 (09:00→17:00)
[2022-01-19] MEDS: FLUDROCORTISONE ACETATE 0.1MG TABLET PO SCH (10:32)
[2022-01-19 11:12] LABS: T4 FREE 0.66 ng/dL (0.76-1.46)
[2022-01-19 12:00] VITALS: BP 162/98
[2022-01-19 13:06] LABS: PRO INSULIN 5.2 pmol/L (0.0-10.0)
[2022-01-19 13:06] LABS: PRO INSULIN 4.5 pmol/L (0.0-10.0)
[2022-01-19 16:00] VITALS: BP 144/98
[2022-01-19 20:21] VITALS: BP 161/94
[2022-01-20 00:10] VITALS: BP 149/85
[2022-01-20 04:00] VITALS: BP 146/76
[2022-01-20] MEDS: SODIUM CHLORIDE 0.9% INJ 3ML FLUSH IVF SCH ×2 (05:46→22:00)
[2022-01-20] MEDS: LEVOTHYROXINE SODIUM 25MCG TABLET PO SCH (06:19)
[2022-01-20] MEDS: BLOOD SUGAR DIAGNOSTIC STRIP TEST SCH ×3 (06:19→22:29)
[2022-01-20 08:00] VITALS: BP_SYST 135; BP_SYST 143; BP_DIAS 78; BP_DIAS 90
[2022-01-20] MEDS: MIDODRINE HCL 5MG TABLET PO SCH ×3 (09:00→17:00)
[2022-01-20] MEDS: PANTOPRAZOLE SODIUM 40 MG/VIAL IV SCH (09:00)
[2022-01-20 09:37] LABS: BASOPHILS % 0.3 % (0.0-2.0); EOSINOPHILS % 1.1 % (0.0-5.0); HEMATOCRIT. 44.2 % (36.0-48.0); HEMOGLOBIN. 14.4 g/dL (12.0-16.0); MEAN CORPUSCULAR HEMOGLOBIN 31.9 pg (28.0-32.0); MEAN PLATELET VOLUME 9.7 fl (7.4-10.4); MONOCYTES % 14.8 % (2.0-8.0); NEUTROPHILS % 73.8 % (40.0-76.0); PLATELET 55 x1000/uL (130-400); RED BLOOD CELL COUNT 4.52 mill/uL (4.2-5.4); RED CELL DISTRIBUTION WIDTH 18.3 % (11.6-14.6)
[2022-01-20 09:44] LABS: INR 1.6; PROTHROMBIN TIME 16.8 sec (9.6-11.0)
[2022-01-20 10:05] LABS: MEAN CORPUSCULAR VOLUME 97.6 fL (81.0-99.0)
[2022-01-20] MEDS: FLUDROCORTISONE ACETATE 0.1MG TABLET PO SCH (10:11)
[2022-01-20 12:00] VITALS: BP 145/83
[2022-01-20 16:00] VITALS: BP 155/90
[2022-01-20 20:00] VITALS: BP 139/88
[2022-01-21] VITALS: BP 135/72
[2022-01-21] MEDS: IPRATROPIUM/ALBUTEROL 0.5-3(2.5)MG/3ML NEB HHN SCH ×3 (01:56→14:27)
[2022-01-21 04:00] VITALS: BP 144/96
[2022-01-21] MEDS: BLOOD SUGAR DIAGNOSTIC STRIP TEST SCH (06:07)
[2022-01-21] MEDS: SODIUM CHLORIDE 0.9% INJ 3ML FLUSH IVF SCH (06:38)
[2022-01-21] MEDS: LEVOTHYROXINE SODIUM 25MCG TABLET PO SCH (06:38)
[2022-01-21] MEDS: ACETAMINOPHEN 325MG TABLET PO PRN (06:53)
[2022-01-21 07:03] LABS: BASOPHILS % 0.4 % (0.0-2.0); EOSINOPHILS % 0.6 % (0.0-5.0); HEMATOCRIT. 43.9 % (36.0-48.0); HEMOGLOBIN. 14.8 g/dL (12.0-16.0); LYMPHOCYTES % 10.1 % (20.0-50.0); MEAN CORPUSCULAR HEMOGLOBIN 32.3 pg (28.0-32.0); MEAN CORPUSCULAR VOLUME 95.9 fL (81.0-99.0); MEAN PLATELET VOLUME 9.7 fl (7.4-10.4); MONOCYTES % 14.9 % (2.0-8.0); PLATELET 60 x1000/uL (130-400); RED BLOOD CELL COUNT 4.58 mill/uL (4.2-5.4); RED CELL DISTRIBUTION WIDTH 18.3 % (11.6-14.6)
[2022-01-21 08:00] VITALS: BP 173/106
[2022-01-21] MEDS ORDERED: ENOXAPARIN 80MG/0.8ML SYR SUBCUT SCH ×2 (09:00→14:00)
[2022-01-21] MEDS: PANTOPRAZOLE SODIUM 40 MG/VIAL IV SCH (09:00)
[2022-01-21] MEDS: MIDODRINE HCL 5MG TABLET PO SCH ×2 (09:00→12:05)
[2022-01-21 12:00] VITALS: BP 162/103
[2022-01-21] MEDS ORDERED: MIDODRINE HCL 5MG TABLET PO SCH (17:00)
[2022-01-21] MEDS ORDERED: PREDNISONE 10MG TABLET PO SCH (17:40)
[2022-01-22 15:10] LABS: ANA IFA Positive (.)
== END 2022-01-21 15:45 | disposition short-term general hospital (02) | DRG 871 ==
LOC: ER 22:58 → 8WST 01-11 14:55
PROVIDERS: ADMIT Internal Medicine; ATTEND Internal Medicine
PROC: 5A1D70Z Performance of Urinary Filtration, Intermittent, Less than 6 Hours Per Day (ICD-10-PCS; principal; 2022-01-12)
PROC: 5A1D70Z Performance of Urinary Filtration, Intermittent, Less than 6 Hours Per Day (ICD-10-PCS; 2022-01-14)
PROC: 5A1D70Z Performance of Urinary Filtration, Intermittent, Less than 6 Hours Per Day (ICD-10-PCS; 2022-01-16)
PROC: 5A1D70Z Performance of Urinary Filtration, Intermittent, Less than 6 Hours Per Day (ICD-10-PCS; 2022-01-19)
DX: A41.9 Sepsis, unspecified organism (principal); N18.6 End stage renal disease; J96.10 Chronic respiratory failure, unspecified whether with hypoxia or hypercapnia; I13.2 Hypertensive heart and chronic kidney disease with heart failure and with stage 5 chronic kidney disease, or end stage renal disease; R18.8 Other ascites; B17.9 Acute viral hepatitis, unspecified; D68.9 Coagulation defect, unspecified; I82.611 Acute embolism and thrombosis of superficial veins of right upper extremity; I50.32 Chronic diastolic (congestive) heart failure; E44.1 Mild protein-calorie malnutrition; D69.3 Immune thrombocytopenic purpura; E27.40 Unspecified adrenocortical insufficiency; E87.1 Hypo-osmolality and hyponatremia; E87.2 Acidosis; I69.354 Hemiplegia and hemiparesis following cerebral infarction affecting left non-dominant side; Z20.822 Contact with and (suspected) exposure to COVID-19; I27.20 Pulmonary hypertension, unspecified; D63.1 Anemia in chronic kidney disease; E11.649 Type 2 diabetes mellitus with hypoglycemia without coma; E11.22 Type 2 diabetes mellitus with diabetic chronic kidney disease; K52.9 Noninfective gastroenteritis and colitis, unspecified; J44.9 Chronic obstructive pulmonary disease, unspecified; E86.0 Dehydration; E03.9 Hypothyroidism, unspecified; E87.5 Hyperkalemia; I95.9 Hypotension, unspecified; D50.9 Iron deficiency anemia, unspecified; K76.9 Liver disease, unspecified; R74.01 Elevation of levels of liver transaminase levels; E80.6 Other disorders of bilirubin metabolism; R65.20 Severe sepsis without septic shock; E66.9 Obesity, unspecified; I25.10 Atherosclerotic heart disease of native coronary artery without angina pectoris; D69.6 Thrombocytopenia, unspecified; D75.9 Disease of blood and blood-forming organs, unspecified; E83.51 Hypocalcemia; E78.5 Hyperlipidemia, unspecified; I08.1 Rheumatic disorders of both mitral and tricuspid valves; Z68.27 Body mass index [BMI] 27.0-27.9, adult; Z90.49 Acquired absence of other specified parts of digestive tract; Z99.2 Dependence on renal dialysis; Z99.81 Dependence on supplemental oxygen; Z79.899 Other long term (current) drug therapy; Z79.01 Long term (current) use of anticoagulants; Z83.3 Family history of diabetes mellitus; Z87.891 Personal history of nicotine dependence; Z90.710 Acquired absence of both cervix and uterus
CPT/HCPCS: 36415; 71045; 74176; 76700; 80048; 80053; 80076; 82248; 82533; 82550; 82607; 82746; 82947; 82962; 83001; 83002; 83036; 83525; 83605; 84145; 84146; 84206; 84439; 84443; 84484; 84681; 85025; 85651; 86256; 86376; 86431; 86705; 86709; 86803; 87340; 87426; 93005; 93922; 93971; 94640; 97162; 97165; 99291; A6261; C1893; C9113; J0360; J1200; J1650; J1815; J2405; J2543; J3490; J7040; J7060; J7070; P9047